=== PATIENT | male | born 1985 | race Caucasian/White ===

== ENCOUNTER 2022-10-01 06:58 | Outpatient (REF) | payer BC, SELFPAY ==
[2022-10-01 08:58] LABS: Appearance Urine Clear; Color Urine Yellow; Glucose Urine UA Negative (Negative); Leukocyte Esterase Urine Negative (Negative); Nitrite Urine Negative (Negative); PH 5.5 (5.0-9.0); Urine Blood Negative (Negative); Urine Ketones Negative (Negative); Urine Protein Negative (Neg-Trace)
[2022-10-01 09:09] LABS: MANUAL DIFF FLAG NO
[2022-10-01 09:27] LABS: Basophils Absolute Auto 0.1 X10*3/uL (0.0-0.2); Basophils Percent Auto 0.8 % (0-2); Eosinophils Absolute Auto 0.2 X10*3/uL (0.0-0.4); Eosinophils Percent Auto 2.4 % (0-4); Hematocrit 39.3 % (42.0-52.0); Hemoglobin 12.1 g/dl (14.0-18.0); Imm Gran Abs Auto 0.01 X10*3/uL (0.00-0.03); Imm Gran Pct Auto 0.2 % (0.0-0.4); Lymphocytes Absolute Auto 1.7 X10*3/uL (1.2-4.9); Lymphocytes Percent Auto 26.6 % (20-40); Mean Corpuscular HGB Conc 30.8 g/dl (31.0-36.0); Monocytes Absolute Auto 0.5 X10*3/uL (0.1-1.2); Neutrophils Absolute Auto 3.9 x10*3/uL (2.0-8.3); Platelet Count 161 X10*3/uL (160-400); Red Blood Count 6.05 X10*6/uL (4.60-5.80); Red Cell Distribution Width 17.6 % (11.0-16.0); White Blood Count 6.4 X10*3/uL (4.8-10.8)
[2022-10-01 10:02] LABS: Alanine Aminotransferase 32 U/L (0-40); Albumin Level 4.5 g/dL (3.5-5.0); Alkaline Phosphatase 71 U/L (39-117); Anion Gap 12 (12-20); Aspartate Amino Transferase 21 U/L (5-37); Bilirubin Total 0.9 mg/dL (0.0-1.0); Blood Urea Nitrogen 14 mg/dL (9-16); Calcium 9.5 mg/dL (8.4-10.2); Carbon Dioxide 28 mmol/L (22-29); Chloride 106 mmol/L (96-108); Cholesterol 169 mg/dL; Estimated Glomerular Filt Rate > 60; Glucose Fasting 96 mg/dL (60-99); HDL Cholesterol 41 mg/dL; LDL Cholesterol Calculated 111 mg/dl; Potassium 4.1 mmol/L (3.3-5.1); Sodium 142 mmol/L (135-145); TSH reflex Free T4 1.31 uIU/mL (0.32-4.0); Total Protein 7.5 g/dL (6.5-8.0); Triglycerides 85 mg/dL
== END 2022-10-01 06:59 | disposition home or self-care (01) ==
LOC: HO.HMGCLDS 06:58
PROVIDERS: PCP Nurse Practitioner Family; Visit Provider Nurse Practitioner Family
DX: Z00.00 Encounter for general adult medical examination without abnormal findings (principal); Z20.2 Contact with and (suspected) exposure to infections with a predominantly sexual mode of transmission; Z13.220 Encounter for screening for lipoid disorders; Z13.29 Encounter for screening for other suspected endocrine disorder
CPT/HCPCS: 36415; 80053; 80061; 81003; 84443; 85025

== ENCOUNTER 2022-10-07 09:05 | Outpatient (REF) | payer BC, SELFPAY ==
[2022-10-07 11:14] LABS: MANUAL DIFF FLAG NO
[2022-10-07 11:27] LABS: Basophils Absolute Auto 0.1 X10*3/uL (0.0-0.2); Basophils Percent Auto 0.8 % (0-2); Eosinophils Absolute Auto 0.1 X10*3/uL (0.0-0.4); Eosinophils Percent Auto 2.2 % (0-4); Hematocrit 40.3 % (42.0-52.0); Hemoglobin 12.4 g/dl (14.0-18.0); Imm Gran Abs Auto 0.01 X10*3/uL (0.00-0.03); Imm Gran Pct Auto 0.2 % (0.0-0.4); Immature Retic Fraction 12.6 % (2.3-13.4); Lymphocytes Absolute Auto 2.1 X10*3/uL (1.2-4.9); Lymphocytes Percent Auto 33.3 % (20-40); Mean Corpuscular HGB Conc 30.8 g/dl (31.0-36.0); Mean Corpuscular Volume 65.1 fL (80.0-98.0); Monocytes Absolute Auto 0.5 X10*3/uL (0.1-1.2); Monocytes Percent Auto 7.2 % (2-11); Neutrophils Absolute Auto 3.5 x10*3/uL (2.0-8.3); Neutrophils Percent Auto 56.3 % (45-73); Platelet Count 155 X10*3/uL (160-400); Red Blood Count 6.19 X10*6/uL (4.60-5.80); Red Cell Distribution Width 17.9 % (11.0-16.0); Retic HGB Equivalent 23.7 pg (30.0-35.0); Reticulocyte Percent 1.8 % (0.5-1.8); White Blood Count 6.3 X10*3/uL (4.8-10.8)
[2022-10-07 12:05] LABS: Iron 119 mcg/dL (45-160); Percent Iron Saturation 46 % (15-50); Total Iron Binding Capacity 257 mcg/dL (228-428); Unsaturated Iron Binding 138 ug/dL
[2022-10-07 12:23] LABS: Ferritin 668 ng/mL (20-250)
[2022-10-07 12:26] LABS: Folate 15.6 ng/mL (> or = 4.0); Vitamin B12 906 pg/mL (200-900)
[2022-10-09 22:13] LABS: Hematocrit 38.7 % (38.5-50.0); Hemoglobin 12.4 g/dL (13.2-17.1); MCH 20.1 pg (27.0-33.0); MCV 62.7 fL (80.0-100.0); RBC 6.17 Million/uL (4.20-5.80); RDW 17.8 % (11.0-15.0)
== END 2022-10-07 09:06 | disposition home or self-care (01) ==
LOC: HO.HMGCLDS 09:05
PROVIDERS: PCP Nurse Practitioner Family; Visit Provider Nurse Practitioner Family
DX: D64.9 Anemia, unspecified (principal)
CPT/HCPCS: 36415; 82607; 82728; 82746; 83020; 83540; 85014; 85018; 85025; 85041; 85045

== ENCOUNTER 2022-10-13 08:25 | Outpatient (REF) | payer BC, SELFPAY ==
[2022-10-13 12:39] LABS: FIT Int Ctl YES; FIT1 NEGATIVE (NEGATIVE); FIT2 NEGATIVE (NEGATIVE)
== END 2022-10-13 08:26 | disposition home or self-care (01) ==
LOC: HO.HMGCLNP 08:25
PROVIDERS: PCP Nurse Practitioner Family; Visit Provider Nurse Practitioner Family
DX: D64.9 Anemia, unspecified (principal)
CPT/HCPCS: 82274

== ENCOUNTER → 2022-11-17 13:04 | Outpatient (BNV) | payer BC, SELFPAY | PROVIDERS: PCP Nurse Practitioner Family; Referring Provider Nurse Practitioner Family; Visit Provider Internal Medicine Medical Oncology | DX: D50.9 Iron deficiency anemia, unspecified (principal) | CPT/HCPCS: 99204; 99213 ==

== ENCOUNTER 2022-12-16 13:08 | Outpatient (AMB) | payer BC, SELFPAY ==
--- NOTE | 2022-12-16 13:24 | MHC.OFFVIS ---
Intake Vital Signs 12/16/22 13:28 Height 5 ft 9 in Weight 215 lb BMI 31.7 BP 147/91 H Blood Pressure Location Lt brachial Position Sitting Pulse 85 Intake Visit Reasons: Anemia Intake Note: Patient new consult for Anemia. Patient cc: fatigue. Denies any other GI issues. Template Checker Required: No Accompanied by: Self / Same As Patient Allergies No Known Allergies Allergy (Verified 12/16/22 13:24) HPI HPI Comments History of Present Illness Details A 37-year-old male Thalasemia referred by Hematology with fatigue and nausea - his H&H just a bit low - feels like he crashes by mid day He has had anemia for many years- says he was always border- then had a decline- was to have GI previously-wants to r/o GI source no rectal bleed- heme neg Appetite- good- occ. heartburn- diet dependent- no medications needed-a bit nausea- when he has lower H&H- Bowels- normal- He excercises daily- decreased caffiene- feels well- No V/D/ fever or chills PFSH Surgical History H/O vasectomy History of open reduction and internal fixation (ORIF) procedure Family History Father Enlarged prostate Mother Mental health disorder Melanoma Daughter No problems noted. Social History Housing: House Patient Tobacco Use Status: Never used Tobacco e-Cigarette/Vaping Use: Never Used Second Hand Smoke Exposure: No service: No Current occupational status: employed Current occupation: [employer] Current occupational exposures/hazards: Yes Cognitive needs: No Hearing needs: No Vision needs: No Review of Systems Const All systems reviewed & are unremarkable except as noted in HPI and below Denies body aches, Denies chills, Reports fatigue, Denies fever(s) and Denies night sweats Card Denies chest pain and Denies dyspnea Resp Denies dyspnea GI Denies abdominal pain, Denies change in bowel habits, Denies change in stool character, Denies heartburn, Denies diarrhea, Denies nausea and Denies vomiting Endo Reports fatigue Physical Exam Vital Signs: Last Vital Signs Pulse 85 12/16/22 13:28 BP 147/91 H 12/16/22 13:28 BMI result Body Mass Index 31.7 Const General: cooperative, healthy appearing, comfortable and no acute distress Orientation/consciousness: patient oriented x3 Limitations: no limitations Eyes Sclerae: sclerae normal Resp Effort & Inspection: normal respiratory effort and able to speak in complete sentences Auscultation: clear to auscultation bilaterally Cardio Rate: regular rate Rhythm: regular rhythm Heart sounds: S1 normal heart sound present and S2 normal heart sound present GI Palpation (GI): Soft to palpation and nontender Auscultation: normal bowel sounds Skin General skin exam: no rashes or lesions noted Neuro General: patient oriented x3 Extrem General: Yes full ROM Psych Appearance: grossly normal and well kempt Mental Status: mental status grossly normal Speech and movement: Normal speech and movement present and Clear speech present Affect: normal affect Attitude: cooperative Thought process: Normal thought process present Thought content: Normal thought content present Insight: Good insight present (Psych) Judgement: Good judgement present (Psych) Results Reviewed Results Reviewed: Heme- note labs Assessment & Plan Assessment & Plan (1) Anemia: Comment: years- anemia- dx Thalassemia- Code(s): D64.9 - Anemia, unspecified (2) Microcytic anemia: Comment: Years anemia- no overt bleed- occ heart burn-will cont. eval-EGD/ colon- r/o IBD-other endoscopic cause- Code(s): D50.9 - Iron deficiency anemia, unspecified Plan: EGD/colon Plan EGD/ colonoscopy Orders: Orders EGD/Clarence Combo - GI Use Only 12/16/22 Medications: New bisacodyl (Dulcolax (bisacodyl)) Take 4 tablets by mouth at 12:00pm the day before your procedure. 20 mg (4 x 5 mg) PO ONCE 1 day 4 tabs 0RF colonoscopy prep Z12.11 - Encounter for screening for malignant neoplasm of colon polyethylene glycol 3350 (Miralax) Take as directed by mouth the day before your procedure. 238 grams PO ONCE 1 day PRN 238 grams 0RF laxative effect Patient Instructions: A 37 y/o male microcytic anemia-no overt bleeding- Talasemia- follow with Heme- EGD/ colon- for further eval- discussed procedures- rare risks, need for escort- MG prep Call with concerns- Appreciate the opportunity to assist in care of pleasant gent- Coding Level of Care Code New Pt Level 3 (25232) Diagnoses Anemia D64.9 Microcytic anemia D50.9 Time Spent (min) 30
[2022-12-16 13:28] VITALS: BP 147/91; PULSE 85; BMI 31.7
== END 2022-12-16 14:58 | disposition home or self-care (01) ==
PROVIDERS: PCP Nurse Practitioner Family; Visit Provider Physician Assistant
DX: D64.9 Anemia, unspecified (principal); D50.9 Iron deficiency anemia, unspecified
CPT/HCPCS: 99203

== ENCOUNTER → 2022-12-16 13:08 | Outpatient (BNVA) | payer BC, SELFPAY | PROVIDERS: PCP Nurse Practitioner Family; Visit Provider Physician Assistant ==

== ENCOUNTER 2023-02-13 09:18 | Outpatient (AMB) | payer BC, SELFPAY ==
--- NOTE | 2023-02-13 10:04 | MHC.OFFWIV ---
Intake Vital Signs 02/13/23 10:06 Height 5 ft 9 in Weight 208 lb BMI 30.7 BP 108/68 Blood Pressure Location Lt brachial Position Sitting Pulse 95 Pulse Source Pulse Oximeter Temp 100.5 F H Temp Source Oral Pulse Oximetry (%) 98 Oxygen Delivery Method Room Air Intake Visit Reasons: EP Fever/?Strep Intake Note: Pt is here today c/o sorethroat. h/a and fever Patient Tobacco Use Status: Never used Tobacco Allergies No Known Allergies Allergy (Verified 02/13/23 10:04) Do you need a note to return to daycare/school/sports/work: No HPI EP Fever/?Strep HPI Details patient is a 37-year-old male who comes to the walk-in clinic complaining of sore throat, generalized headache, swollen lymph nodes, and feeling tired for the last few days. He states that as a child he had been diagnosed with strep throat multiple times, and he had become resistant to penicillin and amoxicillin. He states the Augmentin cleared the infections however. He has no known sick contacts. He you tested himself at home for COVID and was negative yesterday and today. [facility] Surgical History H/O vasectomy History of open reduction and internal fixation (ORIF) procedure Family History Father Enlarged prostate Mother Mental health disorder Melanoma Daughter No problems noted. Social History Housing: House Patient Tobacco Use Status: Never used Tobacco e-Cigarette/Vaping Use: Never Used Second Hand Smoke Exposure: No service: No Current occupational status: employed Current occupation: [employer] Current occupational exposures/hazards: Yes Cognitive needs: No Hearing needs: No Vision needs: No Review of Systems Const All systems reviewed & are unremarkable except as noted in HPI and below Physical Exam Vital Signs: Last Vital Signs Temp 100.5 F H 02/13/23 10:06 Pulse 95 02/13/23 10:06 BP 108/68 02/13/23 10:06 Pulse Ox 98 02/13/23 10:06 Oxygen Delivery Method Room Air 02/13/23 10:06 BMI result Body Mass Index 30.7 Const General: cooperative, comfortable, no acute distress, alert, awake, Physically active and well groomed; No anxious, diaphoretic, intoxicated appearing, poor hygiene or tired appearing Nutritional Appearance: average body habitus Orientation/consciousness: oriented to person Limitations: no limitations HEENT Head: Yes normal to inspection, Yes normocephalic and Yes atraumatic Ears: hearing grossly normal bilaterally, external ears normal, TM's normal bilaterally and EAC's normal General nose exam: no nasal discharge noted Face and sinus: No maxillary instability Mouth: Normal oral and palatal mucosa present, lip normal and tongue normal Throat: Yes uvula midline, Yes abnormal tonsil (erythematous And edematous bilaterally), No peritonsillar mass, No postnasal drainage, No uvular edema and No cobblestoning Eyes General: appearance normal, both eyes and all related structures Neck Neck: Yes normal visual inspection, Yes trachea midline, Yes supple, Yes anterior neck swelling, Yes lymphadenopathy ( anterior cervical) and Yes no JVD Resp Effort & Inspection: normal respiratory effort, able to speak in complete sentences, no audible wheezes, no cough, no grunting, not labored, no nasal flaring, no retractions and symmetric chest movement Auscultation: clear to auscultation bilaterally, no crackles, no rales, no rhonchi, no wheezes, lung sounds not diminished and No rub present Cardio Palpation: normal PMI Rate: regular rate Skin Other: Good color, warm and dry Neuro General: oriented to person Psych Appearance: grossly normal Mental Status: mental status grossly normal Speech and movement: Normal speech and movement present Affect: normal affect Attitude: cooperative Thought process: Normal thought process present Insight: Good insight present (Psych) Judgement: Good judgement present (Psych) Results AMB Rapid Strep AMB Rapid Strep Positive Last Edit by Ginger Landeros CMA on 02/13/23 10:18 Results Reviewed Results Reviewed: Laboratory Last Values Strep Scn Rapid Clinic Positive 02/13/23 10:09 positive strep screening Assessment & Plan Assessment & Plan (1) Strep pharyngitis: Code(s): J02.0 - Streptococcal pharyngitis Plan: Patient positive on rapid strep testing for strep pharyngitis. States he has had this multiple times in the past as a child, and penicillin had stopped working effectively and he was being put on Augmentin to treat. I will start him on a 10 day course of Augmentin 500 mg twice a day. He knows hygiene measures to prevent spread of infection and to follow up if symptoms persist or worsen Orders: Orders AMB Rapid Strep Screen Today Z13.9 - Encounter for screening, unspecified Medications: New amoxicillin-pot clavulanate 500-125 mg (Augmentin) 1 tab PO BID 20 tabs 0RF 10 days Coding Level of Care Code Est Pt Level 4 (38061) Diagnoses Strep pharyngitis J02.0
[2023-02-13 10:06] VITALS: BP 108/68; PULSE 95; TEMP 38.1; O2SAT 98; BMI 30.7
== END 2023-02-13 12:34 | disposition home or self-care (01) ==
PROVIDERS: PCP Nurse Practitioner Family; Visit Provider Physician Assistant Medical
DX: J02.0 Streptococcal pharyngitis (principal); J02.9 Acute pharyngitis, unspecified
CPT/HCPCS: 87880; 99214

== ENCOUNTER 2023-02-23 11:38 | Outpatient (AMB) | payer BC, SELFPAY ==
--- NOTE | 2023-02-23 13:10 | MHC.OFFWIV ---
Intake Vital Signs 02/23/23 13:12 Height 5 ft 9 in Weight 210 lb BMI 31.0 BP 118/82 Blood Pressure Location Lt brachial Position Sitting Pulse 89 Pulse Source Pulse Oximeter Temp 98.5 F Temp Source Oral Pulse Oximetry (%) 99 Oxygen Delivery Method Room Air Intake Visit Reasons: EP Sinus Pressure/finished antibiotics [id number] Intake Note: pt was treated for strep x10 days and stats his head is very congested sinus pressure and pain on the left side of his face Patient Tobacco Use Status: Never used Tobacco Allergies No Known Allergies Allergy (Verified 02/24/23 10:43) Medication List - Last Reconciled 02/24/23 by Richard Arcos MD fluticasone propionate 50 mcg/actuation (Flonase Allergy Relief) 1 spray intranasal DAILY HPI EP Sinus Pressure/finished antibiotics [id number] HPI Details 37-year-old male presents to the office for a sick visit. Patient was seen for an upper respiratory tract infection and has completed 10 days of antibiotics. Continues to have congestion and postnasal drip with a headache. Cough symptoms have improved. [facility] Surgical History H/O vasectomy History of open reduction and internal fixation (ORIF) procedure Family History Father Enlarged prostate Mother Mental health disorder Melanoma Daughter No problems noted. Social History Housing: House Patient Tobacco Use Status: Never used Tobacco e-Cigarette/Vaping Use: Never Used Second Hand Smoke Exposure: No service: No Current occupational status: employed Current occupation: [employer] Current occupational exposures/hazards: Yes Cognitive needs: No Hearing needs: No Vision needs: No Physical Exam Vital Signs: Last Vital Signs Temp 98.5 F 02/23/23 13:12 Pulse 89 02/23/23 13:12 BP 118/82 02/23/23 13:12 Pulse Ox 99 02/23/23 13:12 Oxygen Delivery Method Room Air 02/23/23 13:12 BMI result Body Mass Index 31.0 Const General: cooperative and healthy appearing Nutritional Appearance: well nourished Orientation/consciousness: patient oriented x3 Limitations: no limitations HEENT Head: Yes normal to inspection Eyes General: appearance normal, both eyes and all related structures Neck Neck: Yes normal visual inspection Chest Chest palpation & inspection: normal palpation of entire chest wall Resp Effort & Inspection: normal respiratory effort Neuro General: patient oriented x3 Assessment & Plan Assessment & Plan (1) Upper respiratory tract infection: Code(s): J06.9 - Acute upper respiratory infection, unspecified Plan: Tylenol every 6 hours and Flonase added to the regimen. Another round of antibiotics is not needed. Medications: New fluticasone propionate 50 mcg/actuation (Flonase Allergy Relief) administer into each nostril 1 spray intranasal DAILY 9.9 mL 1RF Coding Level of Care Code Est Pt Level 3 (90096) Diagnoses Upper respiratory tract infection J06.9
[2023-02-23 13:12] VITALS: BP 118/82; PULSE 89; TEMP 36.9; O2SAT 99; BMI 31.0
== END 2023-02-23 14:52 | disposition home or self-care (01) ==
PROVIDERS: PCP Nurse Practitioner Family; Visit Provider Internal Medicine
DX: J06.9 Acute upper respiratory infection, unspecified (principal)
CPT/HCPCS: 99213

== ENCOUNTER 2023-04-14 13:11 | Outpatient (AMB) | payer BC, SELFPAY ==
--- NOTE | 2023-04-14 13:15 | MHC.OFFVIS ---
Intake Vital Signs 04/14/23 13:20 Height 5 ft 9 in Weight 206 lb BMI 30.4 BP 125/59 L Blood Pressure Location Lt brachial Position Sitting Pulse 77 Intake Visit Reasons: follow up per oncology Intake Note: Arias presents in the office as a follow up per oncology. CC: He states that he is not having any concerns and not sure why he is here today. Allergies No Known Allergies Allergy (Verified 04/14/23 13:21) HPI HPI Comments History of Present Illness Details A 37 y/o male seen initially with anemia- awaiting EGD and colonoscopy- Has no GI complaints He was seen by Dr. 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 Social History Housing: House Patient Tobacco Use Status: Never used Tobacco e-Cigarette/Vaping Use: Never Used Second Hand Smoke Exposure: No service: No Current occupational status: employed Current occupation: [employer] Current occupational exposures/hazards: Yes Cognitive needs: No Hearing needs: No Vision needs: No Review of Systems Const All systems reviewed & are unremarkable except as noted in HPI and below Card Denies chest pain and Denies dyspnea Resp Denies dyspnea GI Denies abdominal pain Physical Exam Vital Signs: Last Vital Signs Pulse 77 04/14/23 13:20 BP 125/59 L 04/14/23 13:20 BMI result Body Mass Index 30.4 Const General: cooperative, healthy appearing, comfortable and no acute distress Limitations: no limitations Eyes Sclerae: sclerae normal Resp Effort & Inspection: normal respiratory effort and able to speak in complete sentences Skin General skin exam: no rashes or lesions noted Extrem General: Yes full ROM Psych Appearance: grossly normal and well kempt Mental Status: mental status grossly normal Speech and movement: Normal speech and movement present Attitude: cooperative Thought process: Normal thought process present Thought content: Normal thought content present Insight: Good insight present (Psych) Judgement: Good judgement present (Psych) Assessment & Plan Assessment & Plan (1) Anemia: Comment: years- anemia- dx Thalassemia- Reviewed recent labs mild elevation to ferritin- acute phase reactant, non [id number] supplement only- HFe-hemochromatosis -11/2022 Code(s): D64.9 - Anemia, unspecified Plan: Weight findings EGD colonoscopy (2) Elevated ferritin: Comment: Elevated-minimal, acute phase reactant, discuss further MD Code(s): R79.89 - Other specified abnormal findings of blood chemistry Plan: Hold off till EGD colonoscopy Plan ck what other labs-heme with MD- Patient Instructions: Very pleasant 37-year-old Gent follows after being seen by Hematology for anemia-he has no GI or general complaints He is awaiting EGD colonoscopy-in May2023 Complete labs- Encouraged to call with concerns Coding Level of Care Code Est Pt Level 3 (30553) Diagnoses Anemia D64.9 Elevated ferritin R79.89 Time Spent (min) 30
[2023-04-14 13:20] VITALS: BP 125/59; PULSE 77; BMI 30.4
== END 2023-04-14 14:42 | disposition home or self-care (01) ==
PROVIDERS: PCP Nurse Practitioner Family; Visit Provider Physician Assistant
DX: D64.9 Anemia, unspecified (principal); R79.89 Other specified abnormal findings of blood chemistry
CPT/HCPCS: 99213

== ENCOUNTER → 2023-04-14 13:11 | Outpatient (BNVA) | payer BC, SELFPAY | PROVIDERS: PCP Nurse Practitioner Family; Visit Provider Physician Assistant ==

== ENCOUNTER 2023-06-16 09:52 | Day surgery (SDC) | payer BC, SELFPAY ==
--- NOTE | 2023-06-15 12:09 | P.CONAN_ITS ---
Documented by User: Awilda Parr NP 06/15/23 12:09 HPI - Anesthesia Eval Consult details Narrative: 38yo M for Upper Endoscopy and Colonoscopy PMFSH Active Problems Active Problems: All Active Problems (Updated 04/20/23 @ 12:09 by Zohreh Lopez PA-C) Elevated ferritin (Acute) Microcytic anemia (Acute) Anemia (Acute) Upper respiratory tract infection (Acute) Physical exam (Acute) Family History Family History Father Enlarged prostate Mother Mental health disorder Melanoma Daughter No problems noted. Surgical History Surgical History H/O vasectomy History of open reduction and internal fixation (ORIF) procedure Social History Social History Housing: House Patient Tobacco Use Status: Never used Tobacco e-Cigarette/Vaping Use: Never Used Second Hand Smoke Exposure: No Use of substances other than those prescribed or required for medical reasons: Yes Are you DNR?: No Advance Directives: No Advance Directives Information Provided: Yes service: No Current occupational status: employed Current occupation: [employer] Current occupational exposures/hazards: Yes Cognitive needs: No Hearing needs: No Vision needs: No Meds Allergies Allergy/AdvReac Type Severity Reaction Status Date / Time No Known Allergies Allergy Verified 04/14/23 13:21 Exam Pertinent Lab Results Pertinent Lab Results: Laboratory Tests 03/08/23 14:43 WBC 7.1 Hgb 11.4 L Hct 37.2 L Plt Count 206 Sodium 142 Potassium 3.6 Chloride 105 Carbon Dioxide 29 BUN 12 Creatinine 0.78 Assessment and Plan Assessment Anesthesia Assessment: Chart Reviewed Documented by User: Matilda Gilman MD 06/16/23 10:34 PMFSH Family History Family History Father Enlarged prostate Mother Mental health disorder Melanoma Daughter No problems noted. Family history of problems with anesthesia: No Surgical History Surgical History H/O vasectomy History of open reduction and internal fixation (ORIF) procedure History of Problems with Anesthesia: No Social History Social History Housing: House Patient Tobacco Use Status: Never used Tobacco e-Cigarette/Vaping Use: Never Used Second Hand Smoke Exposure: No Use of substances other than those prescribed or required for medical reasons: Yes Are you DNR?: No Advance Directives: No Advance Directives Information Provided: Yes service: No Current occupational status: employed Current occupation: [employer] Current occupational exposures/hazards: Yes Cognitive needs: No Hearing needs: No Vision needs: No Meds Allergies Allergy/AdvReac Type Severity Reaction Status Date / Time No Known Allergies Allergy Verified 04/14/23 13:21 Exam Airway Mallampati Class: II TM Dist: >3cm Neck ROM: Full Heart: rrr Lungs: cta Assessment and Plan Assessment Anesthesia Assessment: Anesthesia Plan Discussed and Smoking Cess. Discussed Final Anesthetic Review Family History of Problems with Anesthesia: No History of Problems with Anesthesia: No NPO: Yes ASA Class: II Final Preanesthetic Review: No Changes in Pt Med Stat, Meds/Allgs Chart Reviewed, Consent Obtained/Reviewed and Anes Risks/Benef Reviewed Patient Risk: Low Procedure Risk: Low Anesthetic Plan Anesthetic Plan: MAC: Disposition: Standard PACU
[2023-06-16 10:06] VITALS: BP 131/89; PULSE 71; RESP 16; TEMP 36.3; O2SAT 100; BMI 30.4
--- NOTE | 2023-06-16 10:06 | MHC.SHP ---
Pre-Procedural Eval Section A - 24 Hr Update-Section A only Date of Service: 06/16/23 Section B - Complete if H&P > 30 days Chief Complaint: Anemia, unspecified Relevant Family History (Specify if Yes): No Relevant Social History: None Present Medications: see Short Stay Collaborative assessment Medical History: Significant History (thalassemia ) History of Previous Operations: Relevant previous surgery/procedure and date(s) ( H/O vasectomy History of open reduction and internal fixation (ORIF) procedure) Allergies: Allergies Allergy/AdvReac Type Severity Reaction Status Date / Time No Known Allergies Allergy Verified 04/14/23 13:21 Review of Systems Sugical H&P ROS: Negative: Constitution, Cardiovascular, Respiratory, Neurological, Psychiatric, Hem-Onc, Allergic/Immunologic, Gastrointestinal, Genitourinary, Musculoskeletal, Integumentary, Endocrine and Eyes/Ears/Nose/Throat Exam Surgical H&P Exam: Normal: HEENT, Normal: Heart, Normal: Lungs, Normal: Extremities, Normal: Abdomen, Normal: Skin and Normal: Neurological Plan Diagnosis/Plan: Unchanged I have reviewed the history and physical and performed a pertinent physical examination on my patient. No changes have occurred unless specified. Time Spent With Patient Time: Total time managing care of this patient today ____ minutes.
--- NOTE | 2023-06-16 10:32 | W.PM.OPN ---
Operative Note Operative Note Date of Service: 06/16/23 Narrative: Operative Information Procedure Description: EGD, Colonoscopy Indication: anemia Anesthesia: MAC FLEXIBLE TRANSORAL UPPER GASTROINTESTINAL ENDOSCOPY AND COLONOSCOPY PROCEDURE NOTE UPPER ENDOSCOPY Consent: Indications for the procedure and potential complications of bleeding, perforation, reaction to medications and missed diagnosis were discussed with the patient and informed consent was obtained. Instrument: Olympus GIF H 190 J mid size upper endoscope Monitoring: Vital signs and clinical assessment, continuous EKG monitoring, Pulse oximetry, Carbon Dioxide monitoring and blood pressure monitoring were done throughout the procedure. Procedure: The patient was placed in the left lateral decubitis position and pre-procedure medications were administered and a bite block was placed. The endoscope was inserted into the mouth and advanced under direct vision to the third part of duodenum. A careful inspection was made as the upper endoscope was withdrawn including a retroflexed examination of the proximal stomach; Findings and interventions are described below. Findings: Larynx:normal Esophagus: GE junction at 34 cm, diaphragm hiatus at 37 cm, consistent with 3 cm sliding hiatal hernia, erosive esophagitis noted, with non obstructive schatzki ring --bx taken from GEJ, distal and proximal esophagus Stomach: patchy erythema. Biopsies were obtained. Grade 3 patulous flap valve on retroflexed examination of the cardia. Duodenum: Normal bulb and descending duodenum, bx taken Intervention: Biopsies as noted above COLONOSCOPY Instrument: Olympus variable stiffness pediatric scope 190L Colonoscopy Monitoring: Vital signs and clinical assessment, continuous EKG monitoring, Pulse oximetry, Carbon Dioxide monitoring and blood pressure monitoring were done throughout the procedure. Colon withdrawal time was 10 minutes. Procedure: The patient was placed in the left lateral decubitis position and pre-procedure medications were administered. After a digital rectal examination of the ano-rectum, the video colonoscope was inserted into the rectum and advanced through the colon to the cecum/TI. The colonoscope was slowly withdrawn in a retrograde panoramic fashion and the colon mucosa was carefully examined including a retroflexed view of the rectum. Findings and interventions are described below. Procedure Difficulty: Findings: Terminal Ileum-normal Cecum: small hyperplastic appearing polyp 5-6 mm removed with cold forceps Ascending Colon: normal Transverse Colon -normal Descending Colon:normal Sigmoid Colon: normal Rectum: Retroflexion with small internal hemorrhoids, grade I Anorectum - normal Colon preparation: [place] Bowel Preparation Scale Right colon; 2 Transverse colon: 3 Left colon; 3 (0 = Unprepared colon segment with mucosa not seen due to solid stool that cannot be cleared. 1 = Portion of mucosa of the colon segment seen, but other areas of the colon segment not well seen due to staining, residual stool and/or opaque liquid. 2 = Minor amount of residual staining, small fragments of stool and/or opaque liquid, but mucosa of colon segment seen well. 3 = Entire mucosa of colon segment seen well with no residual staining, small fragments of stool or opaque liquid) Impression and Post Procedure Diagnosis: Endoscopy Findings: schatzki ring erosive esophagitis (may be contributing to anemia) hiatal hernia gastritis Colonoscopy Findings: polyp internal hemorrhoids Plan: Await Pathology results Repeat Colonoscopy aged 45 or earlier if clinically indicated High fiber diet leaflet avoid straining at stool, epsom salts and sitz bath, anusol supps or cream consider PPI trial and reflux precautions Above findings were reviewed with the patient and relevant handouts were provided if indicated.
[2023-06-16 10:42] VITALS: BP 131/89; PULSE 71; RESP 16; TEMP 36.3; O2SAT 100
[2023-06-16] MEDS: Lactated Ringers 1,000 ML 100 ML IVCONT (10:44)
[2023-06-16 11:20] VITALS: BP 114/70; PULSE 70; RESP 16; TEMP 36.4; O2SAT 99
[2023-06-16 11:35] VITALS: BP 135/82; PULSE 70; RESP 16; TEMP 36.4; O2SAT 100
== END 2023-06-16 11:46 | disposition home or self-care (01) ==
PROVIDERS: PCP Nurse Practitioner Family; Visit Provider Internal Medicine Gastroenterology
PROC: (CPT 45380; principal; 2023-06-16 11:50)
DX: D64.9 Anemia, unspecified (principal); K63.5 Polyp of colon; K64.0 First degree hemorrhoids; K29.50 Unspecified chronic gastritis without bleeding; K20.80 Other esophagitis without bleeding; K44.9 Diaphragmatic hernia without obstruction or gangrene; K22.2 Esophageal obstruction; R79.89 Other specified abnormal findings of blood chemistry; D56.9 Thalassemia, unspecified; Z98.52 Vasectomy status; Z98.890 Other specified postprocedural states
CPT/HCPCS: 45380; 43239; 88305; 88313; 88342; J1596; J2704

== ENCOUNTER → 2023-06-16 09:52 | Outpatient (BNV) | payer BC, SELFPAY | PROVIDERS: PCP Nurse Practitioner Family; Visit Provider Internal Medicine Gastroenterology | DX: K22.2 Esophageal obstruction (principal); K20.90 Esophagitis, unspecified without bleeding; K44.9 Diaphragmatic hernia without obstruction or gangrene; K29.70 Gastritis, unspecified, without bleeding; K63.5 Polyp of colon; K64.8 Other hemorrhoids; D64.9 Anemia, unspecified | CPT/HCPCS: 43239; 45380 ==

== ENCOUNTER 2023-08-09 11:09 | Outpatient (REF) | payer BC, SELFPAY ==
[2023-08-09 13:23] LABS: Appearance Urine Clear; Color Urine Yellow; Glucose Urine UA Negative (Negative); Leukocyte Esterase Urine Negative (Negative); Nitrite Urine Negative (Negative); PH 6.5 (5.0-9.0); Urine Blood Negative (Negative); Urine Ketones Negative (Negative); Urine Protein Negative (Neg-Trace)
[2023-08-09 13:36] LABS: MANUAL DIFF FLAG NO
[2023-08-09 14:00] LABS: Basophils Percent Auto 0.6 % (0-2); Eosinophils Absolute Auto 0.1 X10*3/uL (0.0-0.4); Eosinophils Percent Auto 2.5 % (0-4); Hematocrit 37.1 % (42.0-52.0); Hemoglobin 11.3 g/dl (14.0-18.0); Imm Gran Abs Auto 0.01 X10*3/uL (0.00-0.03); Imm Gran Pct Auto 0.2 % (0.0-0.4); Lymphocytes Absolute Auto 1.8 X10*3/uL (1.2-4.9); Lymphocytes Percent Auto 34.5 % (20-40); Mean Corpuscular HGB Conc 30.5 g/dl (31.0-36.0); Mean Corpuscular Hemoglobin 19.6 pg (27.0-33.0); Monocytes Absolute Auto 0.4 X10*3/uL (0.1-1.2); Monocytes Percent Auto 8.1 % (2-11); Neutrophils Absolute Auto 2.9 x10*3/uL (2.0-8.3); Neutrophils Percent Auto 54.1 % (45-73); Platelet Count 146 X10*3/uL (160-400); Red Blood Count 5.77 X10*6/uL (4.60-5.80); Red Cell Distribution Width 18.7 % (11.0-16.0); White Blood Count 5.3 X10*3/uL (4.8-10.8)
[2023-08-09 14:06] LABS: Mean Corpuscular Volume 64.3 fL (80.0-98.0)
[2023-08-09 14:24] LABS: Alanine Aminotransferase 22 U/L (0-40); Albumin Level 4.4 g/dL (3.5-5.0); Alkaline Phosphatase 66 U/L (39-117); Anion Gap 11 (12-20); Aspartate Amino Transferase 16 U/L (5-37); Bilirubin Total 0.8 mg/dL (0.0-1.0); Blood Urea Nitrogen 9 mg/dL (9-16); Calcium 9.4 mg/dL (8.4-10.2); Carbon Dioxide 27 mmol/L (22-29); Chloride 107 mmol/L (96-108); Cholesterol 145 mg/dL (<200); Estimated Glomerular Filt Rate > 60; Glucose Fasting 91 mg/dL (60-99); HDL Cholesterol 42 mg/dL (>40); LDL Cholesterol Calculated 92 mg/dL (<100); Potassium 3.8 mmol/L (3.3-5.1); Sodium 141 mmol/L (135-145); Total Protein 7.3 g/dL (6.5-8.0); Triglycerides 59 mg/dL (<150)
[2023-08-09 14:28] LABS: TSH reflex Free T4 1.47 uIU/mL (0.32-4.0)
== END 2023-08-09 11:10 | disposition home or self-care (01) ==
LOC: HO.HMGCLDS 11:09
PROVIDERS: PCP Nurse Practitioner Family; Visit Provider Nurse Practitioner Family
DX: Z00.00 Encounter for general adult medical examination without abnormal findings (principal); Z13.6 Encounter for screening for cardiovascular disorders
CPT/HCPCS: 36415; 80053; 80061; 81003; 84443; 85025

== ENCOUNTER 2023-08-12 07:30 | Outpatient (AMB) | payer BC, SELFPAY ==
[2023-08-12 07:48] VITALS: BP 112/70; PULSE 85; O2SAT 98; BMI 30.1
--- NOTE | 2023-08-12 07:48 | MHC.PC.OV ---
Vital Signs 08/12/23 07:48 Height 5 ft 9 in Weight 204 lb BMI 30.1 BP 112/70 Blood Pressure Location Rt brachial Position Sitting Pulse 85 Pulse Source Pulse Oximeter Pulse Oximetry (%) 98 Oxygen Delivery Method Room Air Intake Visit Reasons: PE Intake Note: Pt is here today for his PE Allergies No Known Allergies Allergy (Verified 04/14/23 13:21) Tobacco use date assessed: 08/12/23 Dental Screening Dental Screen Date: 08/12/23 Did you have a dental visit in the last 12 months?: Yes Did you have a dental problem in the last 6 months where you did not have access to dental care?: Yes Was dental information given to patient?: Patient has dentist HPI PE HPI Details Pt is here for a PE. Labs were already performed. Pt has a hx of anemia. He has seen hematology and GI for this and had an EGD/colonoscopy. Will order FIT testing. Apparent erosive esophagitis . Pt reports normal BMs and no visual blood in stool. Denies any severe fatigue or dizziness. Pt does have an apparent diagnosis of thalassemia. 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 [facility] Medical History (Updated 08/12/23 @ 08:04 by PEDRO Vazquez) Thalassemia Surgical History H/O vasectomy History of open reduction and internal fixation (ORIF) procedure Family History Father Enlarged prostate Mother Mental health disorder Melanoma Daughter No problems noted. Social History Housing: House Patient Tobacco Use Status: Never used Tobacco e-Cigarette/Vaping Use: Never Used Second Hand Smoke Exposure: No service: No Current occupational status: employed Current occupation: [employer] Current occupational exposures/hazards: Yes Cognitive needs: No Hearing needs: No Vision needs: No Questionnaire PHQ-9 Over the last 2 weeks, how often have you been bothered by any of the following problems? 1. Little interest or pleasure in doing things: not at all 2. Feeling down, depressed, or hopeless: not at all 3. Trouble falling or staying asleep, or sleeping too much: several days 4. Feeling tired or having little energy: several days 5. Poor appetite or overeating: not at all 6. Feeling bad about yourself - or that you are a failure or have let yourself or your family down: not at all 7. Trouble concentrating on things, such as reading the newspaper or watching television: not at all 8. Moving or speaking so slowly that other people could have noticed. Or the opposite - being so fidgety or restless that you have been moving around a lot more than usual: not at all 9. Thoughts that you would be better off or of hurting yourself in some way: not at all Total score: 2 Depression Screening Interpretation: Negative Depression Screening Done: Yes 33959 - PHQ-9 Billing: Yes Source: Developed by Drs. Manpreet Diaz, Jeni Galaviz, Ashok Noland and colleagues, with an educational sarai from [employer]. Thrive Questionnaire Date Thrive assessed: 08/12/23 I am a: Patient What is your living situation today?: I have a steady place to live Within the past 12 months, did the food you bought not last and you didn't have the money to get more?: Never true Within the past 12 months, did you worry whether your food would run out before you got money to buy more?: Never true Do you have trouble paying for medicines?: No Do you have trouble getting transportation to medical appointments?: No Do you have trouble paying your heating and electricity bill?: No Do you have trouble taking care of your child, family member or friend?: No Do you have trouble with day-to-day activities such as bathing, preparing meals, shopping, managing finances, etc.?: No Are you currently unemployed and looking for a job?: No Are you interested in more education?: Yes THRIVE Score: 0 AUDIT C Alcohol Use Questionnaire (AUDIT-C) 1. How often do you have a drink containing alcohol?: Monthly or less 2. How many drinks containing alcohol do you have on a typical day when you are drinking?: 1 or 2 3. How often do you have six or more drinks on one occasion?: Never Total Score: 1 RHIANNON-7 AMB Questionnaire RHIANNON-7 Date RHIANNON - 7 assessed: 08/12/23 Feeling nervous, anxious, or on edge: 1 = Several days Not being able to stop or control worryin = Not at all Worrying too much about different things: 0 = Not at all Trouble relaxin = Several days Being so restless that it is hard to sit still: 0 = Not at all Becoming easily annoyed or irritable: 0 = Not at all Feeling afraid as if something awful might happen: 0 = Not at all Total RHIANNON-7 score (0-4 normal; 5-9 mild; 10-14 moderate; 15-21 severe): 2 Source: Developed by Drs. Manpreet Diaz, Jeni Galaviz, Ashok Noland and colleagues, with an educational sarai from [employer]. Review of Systems Const Denies chills and Denies fever(s) Eyes Denies blurry vision ENT Denies vertigo, Denies dizziness and Denies sore throat Card Denies chest pain at rest, Denies chest pain with activity, Denies diaphoresis, Denies dyspnea and Denies dyspnea on exertion Resp Denies cough, Denies dyspnea, Denies dyspnea on exertion and Denies wheezing GI Denies abdominal pain, Denies melena, Denies hematochezia, Denies constipation, Denies diarrhea and Denies loose stools Denies hematuria Musc Denies numbness and Denies tingling Skin/Breast Denies lesions Neuro Denies vertigo, Denies dizziness, Denies numbness and Denies tingling Psych Denies anxiety, Denies depression, Denies homicidal ideation, Denies suicidal ideation and Denies other (substance abuse) Aller/Immun Denies wheezing Physical exam (Primary Care) Vital Signs: Last Vital Signs Pulse 85 08/12/23 07:48 BP 112/70 08/12/23 07:48 Pulse Ox 98 08/12/23 07:48 Oxygen Delivery Method Room Air 08/12/23 07:48 BMI result Body Mass Index 30.1 Tobacco/Smoking Status: Tobacco use Status Tobacco use date assessed 08/12/23 08/12/23 07:50 Patient Tobacco Use Status Never used Tobacco 08/12/23 07:50 e-Cigarette/Vaping Use Never Used 08/12/23 07:50 PHQ-9: PHQ-9 Score PHQ-9: Total score 0 04/25/24 07:52 Depression Screening Interpretation: Negative Thrive Assessment: Date of Thrive Assessment Date Thrive assessed 08/12/23 08/12/23 07:52 Const General: cooperative Nutritional Appearance: well nourished Orientation/consciousness: patient oriented x3 HENMT Head: Yes normal to inspection, Yes normocephalic and Yes atraumatic Ears: TM's normal bilaterally Eyes General: appearance normal, both eyes and all related structures Alignment and Position: alignment normal and position normal Neck Neck: Yes normal visual inspection and Yes no lymphadenopathy Thyroid: Thyroid normal Resp Effort & Inspection: normal respiratory effort Auscultation: clear to auscultation bilaterally Cardio Rate: regular rate Rhythm: regular rhythm Heart sounds: S1 normal heart sound present, S2 normal heart sound present and no murmurs GI Palpation (GI): Soft to palpation and nontender Auscultation: normal bowel sounds Male General Exam: Yes normal external exam Penis: normal penis Scrotum: scrotum normal, testes descended bilaterally and no inguinal hernias Testes: no testicular mass Skin Rashes: no rashes Neuro General: patient oriented x3, moves all extremities, no focal motor deficits and deep tendon reflexes 2+ bilaterally Romberg Test: Negative Psych Appearance: grossly normal Mental Status: mental status grossly normal Speech and movement: Normal speech and movement present Affect: normal affect Attitude: cooperative Thought process: Normal thought process present Thought content: Normal thought content present Insight: Good insight present (Psych) Judgement: Good judgement present (Psych) Assessment and Plan Assessment & Plan (1) Anemia: Comment: years- anemia- dx Thalassemia- Reviewed recent labs mild elevation to ferritin- acute phase reactant, non [id number] supplement only- 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 Scribed for PEDRO Domínguez by Roxana Rucker medical interpreter, on 08/12/2023 at 07:50 EST. Orders: Orders FITS Today D64.9 - Anemia, unspecified Coding Level of Care Code Est Pt Prev Care 18-39y(70797) Diagnoses Anemia D64.9 Physical exam Z00.00
== END 2023-08-12 08:03 | disposition home or self-care (01) ==
PROVIDERS: Visit Provider Nurse Practitioner Family
DX: D64.9 Anemia, unspecified (principal); Z00.00 Encounter for general adult medical examination without abnormal findings
CPT/HCPCS: 99395

== ENCOUNTER 2023-08-12 08:04 | Outpatient (REF) | payer BC, SELFPAY ==
[2023-08-12 10:59] LABS: Alanine Aminotransferase 22 U/L (0-40); Albumin Level 4.5 g/dL (3.5-5.0); Alkaline Phosphatase 72 U/L (39-117); Anion Gap 12 (12-20); Aspartate Amino Transferase 16 U/L (5-37); Bilirubin Total 0.7 mg/dL (0.0-1.0); Blood Urea Nitrogen 13 mg/dL (9-16); Calcium 9.7 mg/dL (8.4-10.2); Carbon Dioxide 27 mmol/L (22-29); Chloride 106 mmol/L (96-108); Estimated Glomerular Filt Rate > 60; Glucose Random 82 mg/dL (60-115); Sodium 141 mmol/L (135-145); Total Protein 7.6 g/dL (6.5-8.0)
[2023-08-12 11:08] LABS: Ferritin 959 ng/mL (20-250)
[2023-08-12 11:16] LABS: Lymphocytes Percent Auto 17.8 % (20-40); Mean Corpuscular HGB Conc 31.3 g/dl (31.0-36.0); Mean Corpuscular Hemoglobin 19.8 pg (27.0-33.0); Red Cell Distribution Width 18.4 % (11.0-16.0); SCAN SMEAR FLAG 1
[2023-08-12 11:18] LABS: Basophils Percent Auto 0.5 % (0-2); Eosinophils Absolute Auto 0.1 X10*3/uL (0.0-0.4); Eosinophils Percent Auto 2.3 % (0-4); Hematocrit 37.7 % (42.0-52.0); Hemoglobin 11.8 g/dl (14.0-18.0); Imm Gran Abs Auto 0.02 X10*3/uL (0.00-0.03); Imm Gran Pct Auto 0.3 % (0.0-0.4); Lymphocytes Absolute Auto 1.1 X10*3/uL (1.2-4.9); MANUAL DIFF FLAG SCAN; Monocytes Percent Auto 16.3 % (2-11); Neutrophils Absolute Auto 3.7 x10*3/uL (2.0-8.3); Neutrophils Percent Auto 62.8 % (45-73); Platelet Count 122 X10*3/uL (160-400); Red Blood Count 5.96 X10*6/uL (4.60-5.80)
[2023-08-12 11:22] LABS: Mean Corpuscular Volume 63.3 fL (80.0-98.0); PLT ABN DIST 1
[2023-08-12 11:50] LABS: SLIDE REVIEW VERIFIED
== END 2023-08-12 08:05 | disposition home or self-care (01) ==
LOC: HO.HMGCLDS 08:04
PROVIDERS: PCP Nurse Practitioner Family; Visit Provider Internal Medicine Medical Oncology
DX: D50.9 Iron deficiency anemia, unspecified (principal)
CPT/HCPCS: 36415; 80053; 82728; 85025

== ENCOUNTER 2024-09-07 08:02 | Outpatient (AMB) | payer BC, SELFPAY ==
--- NOTE | 2024-09-07 08:20 | A.OFFPC_ITS ---
Vital Signs 09/07/24 08:21 Height 5 ft 9 in Weight 200 lb 6 oz BMI 29.6 BP 112/72 Blood Pressure Location Rt brachial Position Sitting Pulse 74 Pulse Source Pulse Oximeter Pulse Oximetry (%) 100 Intake Visit Reasons: PE Exterior Interior Specialist Required: No Accompanied by: Self / Same As Patient Allergies No Known Allergies Allergy (Verified 09/07/24 08:54) Medication List - Last Reconciled 09/07/24 by SUSANA Vazquez No Known Home Meds Tobacco use date assessed: 09/07/24 Dental Screening Dental Screen Date: 09/07/24 Did you have a dental visit in the last 12 months?: Yes Did you have a dental problem in the last 6 months where you did not have access to dental care?: No Was dental information given to patient?: Patient has dentist HPI PE HPI Details History of Present Illness The patient is a 39-year-old male presenting for a routine physical examination. He reports no acute symptoms, and denies any recent occurrences of chest pain, respiratory difficulties, or systemic signs like fever or chills. The patient also denies any genitourinary or gastrointestinal issues. He has no mental health concerns, specifically denying any suicidal or homicidal ideation. He expresses general well-being and anticipates future laboratory evaluations when fasting. Health Maintenance - He will undergo fasting laboratory joseph ts in the near future. Social History Review of Systems - Cardiovascular: Denies chest pain. - Respiratory: Denies shortness of breat h. - Constitutional: Denies fevers, denies chills. - Genitourinary: Denies urinary issues. - Gastrointestinal: Denies bowel issues. Physical Exam General: Cooperative, healthy appearing, comfortable, no acute distress and well developed Orientation: Patient oriented x3 Limitations: No limitations Head: Normal to inspection Ears: Hearing grossly normal bilaterally Nose: Normal external nose present Face and sinus: Normal facial exam Eyes: Appearance normal, both eyes and all related structures Neck: Normal visual inspection and Yes full ROM Respiratory: Normal respiratory effort and able to speak in complete sentences. Clear to auscultation bilaterally Cardiovascular: Regular rate and rhythm. Normal S1 and S2 GI: Normal to inspection. Soft to palpation and nontender Skin: No rashes or lesions noted Neuro: Patient oriented x3 Extremities: Normal to inspection Results Plan The patient's visit focused on conducting a routine physical examination to maintain overall health. Future fasting laboratory tests have been planned. Given the absence of acute concerns or symptoms, no immediate additional tests or treatments are necessary. We will base any further recommendations on the laboratory results once they are obtained. Discussion Notes The patient and I discussed the upcoming fasting laboratory tests, which will help us in assessing his overall health status. Given his current lack of symptoms, no immediate interventions are planned. The benefits of routine health checks and preventative care in identifying any underlying issues early were emphasized, ensuring ongoing monitoring and health maintenance. Patient Instructions - Schedule and undergo fasting laborator y tests as discussed. - Maintain routine health checks. - Report any new or concerning symptoms immediately. [facility] Medical History Thalassemia Surgical History H/O vasectomy History of open reduction and internal fixation (ORIF) procedure Family History Father Enlarged prostate Mother Mental health disorder Melanoma Daughter No problems noted. Social History Housing: House Patient Tobacco Use Status: Never used Tobacco e-Cigarette/Vaping Use: Never Used Second Hand Smoke Exposure: No service: No Current occupational status: employed Current occupation: [employer] Current occupational exposures/hazards: Yes Cognitive needs: No Hearing needs: No Vision needs: No Questionnaire PHQ-9 Over the last 2 weeks, how often have you been bothered by any of the following problems? 1. Little interest or pleasure in doing things: not at all 2. Feeling down, depressed, or hopeless: not at all 3. Trouble falling or staying asleep, or sleeping too much: not at all 4. Feeling tired or having little energy: not at all 5. Poor appetite or overeating: not at all 6. Feeling bad about yourself - or that you are a failure or have let yourself or your family down: not at all 7. Trouble concentrating on things, such as reading the newspaper or watching television: not at all 8. Moving or speaking so slowly that other people could have noticed. Or the opposite - being so fidgety or restless that you have been moving around a lot more than usual: not at all 9. Thoughts that you would be better off or of hurting yourself in some way: not at all Total score: 0 Depression Screening Interpretation: Negative Depression Screening Done: Yes 82218 - PHQ-9 Billing: Yes Source: Developed by Drs. Manpreet Diaz, Jeni Galaviz, Ashok Noland and colleagues, with an educational sarai from [employer]. Thrive Questionnaire Date Thrive assessed: 08/12/23 I am a: Patient What is your living situation today?: I have a steady place to live Within the past 12 months, did the food you bought not last and you didn't have the money to get more?: Never true Within the past 12 months, did you worry whether your food would run out before you got money to buy more?: Never true Do you have trouble paying for medicines?: No Do you have trouble getting transportation to medical appointments?: No Do you have trouble paying your heating and electricity bill?: No Do you have trouble taking care of your child, family member or friend?: No Do you have trouble with day-to-day activities such as bathing, preparing meals, shopping, managing finances, etc.?: No Are you currently unemployed and looking for a job?: No Are you interested in more education?: No Please select the resources that you would like help with: None Currently or been in a relationship where the following occur: No concerns reported THRIVE Score: 0 AUDIT C Alcohol Use Questionnaire (AUDIT-C) 1. How often do you have a drink containing alcohol?: Monthly or less 2. How many drinks containing alcohol do you have on a typical day when you are drinking?: 1 or 2 3. How often do you have six or more drinks on one occasion?: Never Total Score: 1 RHIANNON-7 AMB Questionnaire RHIANNON-7 Date RHIANNON - 7 assessed: 08/12/23 Feeling nervous, anxious, or on edge: 0 = Not at all Not being able to stop or control worryin = Not at all Worrying too much about different things: 0 = Not at all Trouble relaxin = Not at all Being so restless that it is hard to sit still: 0 = Not at all Becoming easily annoyed or irritable: 0 = Not at all Feeling afraid as if something awful might happen: 0 = Not at all Total RHIANNON-7 score (0-4 normal; 5-9 mild; 10-14 moderate; 15-21 severe): 0 Source: Developed by Drs. Manpreet Diaz, Jeni Galaviz, Ashok Noland and colleagues, with an educational sarai from [employer]. Physical exam (Primary Care) Vital Signs: Last Vital Signs Pulse 74 09/07/24 08:21 BP 112/72 09/07/24 08:21 Pulse Ox 100 09/07/24 08:21 BMI result Body Mass Index 29.6 Tobacco/Smoking Status: Tobacco use Status Tobacco use date assessed 09/07/24 09/07/24 08:23 Patient Tobacco Use Status Never used Tobacco 09/07/24 08:23 e-Cigarette/Vaping Use Never Used 09/07/24 08:23 PHQ-9: PHQ-9 Score PHQ-9: Total score 0 09/07/24 08:23 Depression Screening Interpretation: Negative Thrive Assessment: Date of Thrive Assessment Date Thrive assessed 08/12/23 09/07/24 08:23 Currently or been in a relationship where the following occur: No concerns reported Coding Level of Care Code Est Pt Prev Care 18-39y(09166) Diagnoses Physical exam Z00. Additional Codes PHQ-9 - 00989 - PHQ-9 Billing: Yes ([id number]) Assessment & Plan Assessment & Plan (1) Physical exam: Code(s): Z00.00 - Encounter for general adult medical examination without abnormal findings Category: Medical Plan . Orders: Orders 2 Complete Blood Count Auto Diff Today Z00.00 - Encounter for general adult medical examination without abnormal findings UA CC w/rflx Micro + Cult Today Z00.00 - Encounter for general adult medical examination without abnormal findings Lipid Panel Today Z00.00 - Encounter for general adult medical examination without abnormal findings Comprehensive [place]. Panel Fast Today Z00.00 - Encounter for general adult medical examination without abnormal findings TSH reflex Free T4 Today Z00.00 - Encounter for general adult medical examination without abnormal findings
[2024-09-07 08:21] VITALS: BP 112/72; PULSE 74; O2SAT 100; BMI 29.6
== END 2024-09-07 09:28 | disposition home or self-care (01) ==
LOC: HO.HMCC 08:03
PROVIDERS: PCP Nurse Practitioner Family; Visit Provider Nurse Practitioner Family
DX: Z00.00 Encounter for general adult medical examination without abnormal findings (principal)

== ENCOUNTER → 2024-09-07 08:02 | Outpatient (BNVA) | payer BC, SELFPAY | PROVIDERS: PCP Nurse Practitioner Family; Visit Provider Nurse Practitioner Family | DX: Z00.00 Encounter for general adult medical examination without abnormal findings (principal); Z13.30 Encounter for screening examination for mental health and behavioral disorders, unspecified | CPT/HCPCS: 96127 ==

== ENCOUNTER 2024-09-28 07:23 | Outpatient (REF) | payer BC, SELFPAY ==
[2024-09-28 10:04] LABS: MANUAL DIFF FLAG NO
[2024-09-28 10:13] LABS: Basophils Percent Auto 0.4 % (0-2); Eosinophils Absolute Auto 0.1 X10*3/uL (0.0-0.4); Eosinophils Percent Auto 1.7 % (0-4); Hematocrit 38.2 % (42.0-52.0); Hemoglobin 11.8 g/dl (14.0-18.0); Imm Gran Abs Auto 0.02 X10*3/uL (0.00-0.03); Imm Gran Pct Auto 0.3 % (0.0-0.4); Lymphocytes Absolute Auto 1.9 X10*3/uL (1.2-4.9); Lymphocytes Percent Auto 26.9 % (20-40); Mean Corpuscular HGB Conc 30.9 g/dl (31.0-36.0); Mean Corpuscular Hemoglobin 20.1 pg (27.0-33.0); Mean Corpuscular Volume 65.1 fL (80.0-98.0); Monocytes Absolute Auto 0.5 X10*3/uL (0.1-1.2); Monocytes Percent Auto 7.2 % (2-11); Neutrophils Absolute Auto 4.5 x10*3/uL (2.0-8.3); Neutrophils Percent Auto 63.5 % (45-73); Platelet Count 149 X10*3/uL (160-400); Red Blood Count 5.87 X10*6/uL (4.60-5.80); White Blood Count 7.1 X10*3/uL (4.8-10.8)
[2024-09-28 10:22] LABS: Appearance Urine Clear; Color Urine Yellow; Glucose Urine UA Negative (Negative); Leukocyte Esterase Urine Negative (Negative); Nitrite Urine Negative (Negative); Urine Blood Negative (Negative); Urine Ketones Negative (Negative); Urine Protein Negative (Neg-Trace)
[2024-09-28 10:40] LABS: Alanine Aminotransferase 22 U/L (0-40); Albumin Level 4.5 g/dL (3.5-5.0); Alkaline Phosphatase 71 U/L (39-117); Anion Gap 10 (12-20); Aspartate Amino Transferase 20 U/L (5-37); Bilirubin Total 0.6 mg/dL (0.0-1.0); Blood Urea Nitrogen 12 mg/dL (9-16); Calcium 9.3 mg/dL (8.4-10.2); Carbon Dioxide 28 mmol/L (22-29); Chloride 106 mmol/L (96-108); Cholesterol 145 mg/dL (<200); Estimated Glomerular Filt Rate > 60; Glucose Fasting 89 mg/dL (60-99); HDL Cholesterol 37 mg/dL (>40); LDL Cholesterol Calculated 96 mg/dL (<100); Potassium 4.2 mmol/L (3.3-5.1); Sodium 140 mmol/L (135-145); Triglycerides 61 mg/dL (<150)
[2024-09-28 10:47] LABS: TSH reflex Free T4 1.23 uIU/mL (0.32-4.0)
== END 2024-09-28 07:24 | disposition home or self-care (01) ==
LOC: HO.HMGCLDS 07:23
PROVIDERS: PCP Nurse Practitioner Family; Visit Provider Nurse Practitioner Family
DX: D64.9 Anemia, unspecified (principal); Z00.00 Encounter for general adult medical examination without abnormal findings; D50.9 Iron deficiency anemia, unspecified
CPT/HCPCS: 36415; 80053; 80061; 81003; 84443; 85025